=== PATIENT | male | born 1950 | race Caucasian/White ===

== ENCOUNTER 2016-11-15 14:00 | Outpatient (RCR) | payer MEDICARE, OTHER | END 2016-12-26 | disposition home or self-care (01) | LOC: PT | DX: Z47.89 Encounter for other orthopedic aftercare (principal); M75.102 Unspecified rotator cuff tear or rupture of left shoulder, not specified as traumatic; M75.22 Bicipital tendinitis, left shoulder ==

== ENCOUNTER 2016-12-27 08:35 | Outpatient (RCR) | payer MEDICARE, OTHER | END 2017-02-07 14:33 | disposition home or self-care (01) | LOC: PT 08:35 | DX: Z47.89 Encounter for other orthopedic aftercare (principal); M75.102 Unspecified rotator cuff tear or rupture of left shoulder, not specified as traumatic; M75.22 Bicipital tendinitis, left shoulder ==